=== PATIENT | female | born 1980 | race Caucasian/White ===

== ENCOUNTER 2017-05-15 10:05 | Inpatient (IN) | payer OTHER ==
[2017-05-15 10:41] VITALS: BMI 33.3
[2017-05-15 10:46] LABS: Amnisure Test RUPTURE DETECTED (No Rupture)
[2017-05-15 10:47] LABS: Amnisure Internal Control QC ACCEPTABLE (ACCEPTABLE)
[2017-05-15] MEDS ORDERED: Diphenoxylate HCl/Atropine Tablet PO PRN ×2 (10:49)
[2017-05-15] MEDS ORDERED: Ibuprofen 800 MG TAB PO PRN (10:49)
[2017-05-15] MEDS ORDERED: LR / Pitocin 40 units/1000 ml 1,000 ML IV PRN (10:49)
[2017-05-15] MEDS ORDERED: Acetaminophen 500 MG TAB PO PRN (10:49)
[2017-05-15] MEDS ORDERED: Ondansetron PF 4 MG/2 ML Vial IVP PRN ×3 (10:49→17:28)
[2017-05-15] MEDS ORDERED: Carboprost 250 MCG/ML AMP IM PRN (10:49)
[2017-05-15] MEDS ORDERED: HYDROcodone/Acetaminophen 5/325 mg Tablet PO PRN ×2 (10:49)
[2017-05-15] MEDS ORDERED: Lidocaine 1% (PF) 30 ML VIAL SC PRN (10:49)
[2017-05-15] MEDS ORDERED: Methylergonovine 0.2 MG/ML VIAL IM PRN (10:49)
[2017-05-15] MEDS ORDERED: Promethazine HCl 25 MG/ML VIAL IM PRN ×2 (10:49→14:30)
[2017-05-15] MEDS ORDERED: Misoprostol 200 MCG TAB PR PRN (10:49)
[2017-05-15] MEDS ORDERED: Lactated Ringer's 1,000 ML IV SCH (11:00)
[2017-05-15] MEDS ORDERED: LR 500 ML/Oxytocin 10 units 500 ML IV SCH (11:00)
[2017-05-15] MEDS: Penicillin G Potassium 5 MILL.UNITS in Sodium Chloride 0.9% 100 ML IVPB STA (11:29)
[2017-05-15 11:51] LABS: Hemoglobin 12.9 g/dL (12.0-16.0); Mean Corpuscular HGB CONC 33.9 g/dL (32.0-36.0); Mean Corpuscular Hemoglobin 32.7 pg (27.0-31.0); Mean Corpuscular Volume 96.4 fl (81.0-99.0); Mean Platelet Volume 9.5 fL (7.4-10.4); Platelet Count 152 thou/uL (130-400); RBC Distribution Width 11.9 % (11.5-14.5); Red Blood Cell (RBC) Count 3.95 mill/uL (4.20-5.40)
[2017-05-15 12:37] LABS: HBSAg Index 0.14 S/CO (0-0.99); Hep B Surf Ag Non-Reactive S/CO (NonReactive); Syphilis Antibody Nonreactive (Nonreactive); Syphilis Antibody Index 0.03 S/CO (<1.00 Non-Reactive)
[2017-05-15] MEDS ORDERED: Bupivacaine 0.5% 20 ML, Fentanyl 400 MCG in Sodium Chloride 0.9% 72 ML EPIDURAL SCH (13:45)
[2017-05-15] MEDS ORDERED: Communication Order-Pharmacy FS SCH (14:30)
[2017-05-15] MEDS ORDERED: Lactated Ringer's 500 ML IV PRN (14:30)
[2017-05-15] MEDS ORDERED: diphenhydrAMINE 50 MG/ML VIAL IVP PRN (14:30)
[2017-05-15] MEDS ORDERED: Fentanyl 4mcg/Marcaine 0.1% Cassette 100 ML EPIDURAL SCH (14:30)
[2017-05-15] MEDS ORDERED: ePHEDrine/0.9% NaCl/PF SYRINGE 50 mg/10 ml SLOW IVP PRN (14:30)
[2017-05-15] MEDS ORDERED: Eucerin (Mineral Oil/Petrolatum,White) 30 gm Jar TOP PRN (14:30)
[2017-05-15] MEDS ORDERED: Naloxone HCl 0.4 mg/ml Vial IVP PRN ×2 (14:30)
[2017-05-15] MEDS ORDERED: Acetaminophen 325 MG TAB PO PRN (14:30)
[2017-05-15] MEDS ORDERED: Penicillin G 2.5 MILL.units 2.5 MILL.UNITS in Premix Bag 1 BAG IVPB SCH (15:00)
--- NOTE | 2017-05-15 15:03 | PDOC.LDHP ---
Labor and Delivery H&P Chief complaint: loss of fluid (at 0900) HPI: 36yo at 39w0d by LMP here for ROM at 0900, clear. Some ctx, no VB. Current gestational age (weeks): 39 Due date: 05/22/17 Dating criteria: first trimester ultrasound Grav: 4 Para: 2 Current complications: none Abnormal US findings: No Current medications: pre- vitamins Previous surgical history: other (d&c, lap detorsion and cyst drainage) Allergies/Adverse Reactions: Allergies Allergy/AdvReac Type Severity Reaction Status Date / Time erythromycin base Allergy Verified 05/15/17 10:56 Social history: none - Physical Exam Vital signs reviewed and normal: yes General: NAD Heart: RRR Lungs: CTAB Abdomen: gravid Extremeties: no edema FHT: category 1 [place] contractions every: q5min - Vaginal Exam cm dilated: 10 Effacement: 100% Station: 0 - OB Labs Blood type: B RH: positive Antibody Screen: negative HIV: negative RPR: negative HEPSAg: negative 1 hour GCT: negative GBS: positive Rubella: immune - Assessment L&D Assessment: term patient in labor - Plan Plan: admit to L&D, labor augmentation if indicated, GBS antibiotic prophylaxis , informed consent obtained, anesthesia consult for pain management
--- NOTE | 2017-05-15 15:05 | PDOC.OPDEL ---
OB Operative/Delivery Note Delivery Dr/Surgeon: Maryam Assist: n/a Pre-Delivery Diagnosis: active labor Procedure/Post Delivery Dx: spontaneous vaginal delivery Weeks gestation: 39 Anesthesia: epidural - Findings A Sex: female Weight: 8 lb 1 oz - 1 min: 8 - 5 min: 9 - Additional Findings/Plan Placenta delivered: spontaneous Repaired Obstetrical Laceration: none Estimated blood loss: 200 Post delivery plan: routine recovery
[2017-05-15] MEDS ORDERED: Milk Of Magnesia 30 ML UDCUP PO PRN (17:28)
[2017-05-15] MEDS ORDERED: Benzocaine/Menthol 20-0.5% 60 ML CAN TOP PRN (17:28)
[2017-05-15] MEDS ORDERED: diphenhydrAMINE 25 MG CAP PO PRN (17:28)
[2017-05-15] MEDS ORDERED: Lanolin Ointment 7 GM TUBE TOP PRN (17:28)
[2017-05-15] MEDS ORDERED: Preparation H Ointment 28 GM TUBE PR PRN (17:28)
[2017-05-15] MEDS ORDERED: Bisacodyl 10 MG SUPP PR PRN (17:28)
[2017-05-15] MEDS ORDERED: LR / Pitocin 40 units/1000 ml 1,000 ML IV SCH (17:28)
[2017-05-15] MEDS: Ferrous Sulfate 325 MG TAB PO SCH (18:35)
[2017-05-15] MEDS: HYDROcodone/Acetaminophen 5/325 mg Tablet PO PRN ×2 (19:43→23:45)
[2017-05-15] MEDS: Docusate Calcium (SURFAK) 240 MG CAP PO SCH (19:44)
[2017-05-15] MEDS: Ibuprofen 800 MG TAB PO SCH (21:23)
[2017-05-16] MEDS: HYDROcodone/Acetaminophen 5/325 mg Tablet PO PRN ×5 (03:58→21:40)
[2017-05-16] MEDS: Ibuprofen 800 MG TAB PO SCH ×3 (05:18→21:38)
--- NOTE | 2017-05-16 08:35 | PDOC.PP ---
Post Progress Note Post Day #: 1 Subjective: doing well, breast feeding well, min lochia PO intake tolerated: yes Flatus: yes Ambulation: yes Vital Signs (12 hours) Temp Pulse Resp BP BP 05/16/17 04:00 97.9 F 64 18 102/68 05/16/17 00:00 98.2 F 69 18 112/71 Weight Weight 200 lb - Physical Examination General: NAD Respiratory: non-labored breathing Abdominal: no distention Fundus firm & at: below umb Extremities: negative homans (B) Skin: no rash Neurological: no gross focal deficits Psychiatric: A&Ox3, normal affect Result Diagrams: 05/15/17 11:20 Additional Labs: Post Labs Hep Bs Antigen Non-Reactive S/CO (NonReactive) 05/15/17 11:20 (1) Vaginal delivery Status: Acute - Assessment/Plan PPD1 doing well, likely DC tomorrow due to GBS+.
[2017-05-16] MEDS: Docusate Calcium (SURFAK) 240 MG CAP PO SCH ×2 (09:01→21:38)
[2017-05-16] MEDS: Prenatal Vitamin 1 TAB PO SCH (09:01)
[2017-05-16] MEDS: Ferrous Sulfate 325 MG TAB PO SCH ×2 (09:01→17:30)
[2017-05-16] MEDS ORDERED: Bupivacaine 0.25% 10 ML VIAL ONE (09:36)
[2017-05-17] MEDS: HYDROcodone/Acetaminophen 5/325 mg Tablet PO PRN ×3 (02:14→12:27)
[2017-05-17] MEDS: Ibuprofen 800 MG TAB PO SCH (06:41)
[2017-05-17 07:45] VITALS: BP 110/75; TEMP 98
[2017-05-17] MEDS: Docusate Calcium (SURFAK) 240 MG CAP PO SCH (08:18)
[2017-05-17] MEDS: Prenatal Vitamin 1 TAB PO SCH (08:18)
[2017-05-17] MEDS: Ferrous Sulfate 325 MG TAB PO SCH (08:19)
--- NOTE | 2017-05-17 09:05 | PDOC.PP ---
Post Progress Note Post Day #: 2 PO intake tolerated: yes Flatus: yes Ambulation: yes Vital Signs (12 hours) Temp Pulse Resp BP 05/17/17 08:00 98.0 F 72 20 05/17/17 07:44 98.0 F 72 20 110/75 05/17/17 04:00 98.1 F 79 18 05/17/17 00:00 98.1 F 79 18 Weight Weight 200 lb - Physical Examination General: NAD Cardiovascular: RRR Respiratory: non-labored breathing Abdominal: no distention, appropriately TTP Fundus firm & at: umb Skin: no rash Neurological: no gross focal deficits Psychiatric: normal affect Result Diagrams: 05/15/17 11:20 Additional Labs: Post Labs Hep Bs Antigen Non-Reactive S/CO (NonReactive) 05/15/17 11:20 (1) Term delivered Code(s): O80 - ENCOUNTER FOR FULL-TERM UNCOMPLICATED DELIVERY Status: Acute - Assessment/Plan VSSAF Doing well, no issues Rh pos RImm DC home fu 6wk
== END 2017-05-17 13:35 | disposition home or self-care (01) | DRG 775 ==
LOC: L&D/OP 10:05 → L&D 10:58 → 3SW 17:22
PROVIDERS: ADMIT Student in an Organized Health Care Education/Training Program; ATTEND Student in an Organized Health Care Education/Training Program
PROC: 10E0XZZ Delivery of Products of Conception, External Approach (ICD-10-PCS; principal; 2017-05-15)
DX: O99.824 Streptococcus B carrier state complicating childbirth (principal); Z37.0 Single live birth; Z3A.39 39 weeks gestation of pregnancy; Z88.1 Allergy status to other antibiotic agents
CPT/HCPCS: 51702; 84112; 85027; 86780; 87340; 99285; J2001; J2405; J2540; J3010; J3490; J7050; S0020

== ENCOUNTER 2018-12-01 14:59 | Emergency (ER) | payer OTHER ==
[2018-12-01 16:00] LABS: #Basophils 0.1 thou/uL (0.0-0.2); #Eosinphils 0.1 thou/uL (0.0-0.7); #Lymphocytes 1.5 thou/uL (1.20-3.40); #Monocytes 0.5 thou/uL (0.11-0.59); #Neutrophils 7.1 thou/uL (1.40-6.50); %Basophils 0.6 % (0.0-1.0); %Eosinophils 1.6 % (0.0-10.0); %Lymphocytes 16.1 % (21.0-51.0); %Monocytes 5.1 % (0.0-10.0); %Neutrophils 76.6 % (42.0-75.0); Hemoglobin 14.8 g/dL (12.0-16.0); Mean Corpuscular HGB CONC 35.1 g/dL (32.0-36.0); Mean Corpuscular Hemoglobin 32.3 pg (27.0-31.0); Mean Corpuscular Volume 91.8 fL (78.0-98.0); Platelet Count 191 thou/uL (130-400); RBC Distribution Width 11.5 % (11.5-14.5); Red Blood Cell (RBC) Count 4.58 mill/uL (4.20-5.40); White Blood Cell (WBC) Count 9.3 thou/uL (4.8-10.8)
[2018-12-01] MEDS ORDERED: HYDROcodone/Acetaminophen 5/325 mg Tablet ONE (17:13)
[2018-12-01] MEDS ORDERED: Ondansetron PF 4 MG/2 ML Vial ONE (17:14)
[2018-12-01 17:39] LABS: Hemoglobin 12.9 g/dL (12.0-16.0)
[2018-12-01] MEDS ORDERED: Misoprostol 200 MCG TAB PR SCH (17:45)
--- NOTE | 2018-12-01 20:34 | CON ---
DATE OF CONSULTATION: 12/01/2018 CONSULTING PROVIDER: Dr. Prieto and Alysha Low NP. HISTORY OF PRESENT ILLNESS: This is a 38-year-old G5, P3-0-1-3, who presented to the emergency department with significant cramping and vaginal bleeding. The patient reports that her cramping started yesterday and continued despite comfort measures. When she arrived to the emergency department, she reported that her water broke and proceeded to pass a 14-week fetus. She was stable with minimal bleeding, but then proceeded to soak her pad an hour and was still having some significant pain and dizziness. Upon my arrival, she appeared to be quite uncomfortable and clammy. She reported continued lower abdominal cramping and discomfort as well as continued moderate bleeding. REVIEW OF SYSTEMS: Negative for head, eyes, ears, nose, throat, cardiovascular, respiratory, GI, , neuropsych, musculoskeletal, skin, or constitutional symptoms other than mentioned above. PAST MEDICAL HISTORY: None. PAST SURGICAL HISTORY: 1. D and C. 2. Laparoscopic detorsion and cyst drainage. 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 ALLERGIES: ERYTHROMYCIN. MEDICATIONS: vitamin. SOCIAL HISTORY: Negative for tobacco, alcohol, or drug abuse. PHYSICAL EXAMINATION: GENERAL: Afebrile, blood pressure 100s/60s, and pulse in the 80s. CHEST: Nonlabored. ABDOMEN: Soft. Minimally tender to palpation. PELVIC: Speculum was placed in the vagina and a large amount of clot approximately 300 mL was removed, and the placenta was found to be at the external cervical os and easily teased out with ring forceps. Once all of this was removed, further inspection showed minimal bleeding. LABORATORY DATA: Hemoglobin 14.8, hematocrit 42.0. Repeat 12.9 and 36.9 respectively. White count 9.3. ASSESSMENT AND PLAN: A 38-year-old status post complete of 14-week fetus, now status post gentle removal of the placenta in the emergency department with ring forceps. Her bleeding now appears stable, and her vital signs are also stable. The patient reports that she feels much better. I recommend continuing to watch her bleeding for at least another hour, and if she is deemed stable to go home, may be discharged to home to follow up with Dr. Francisco next week. All questions were answered. The placenta was sent to Pathology. Job ID: [id number] MTDD
== END 2018-12-01 20:00 | disposition home or self-care (01) ==
LOC: ERS 14:59
DX: O03.9 Complete or unspecified spontaneous abortion without complication (principal)
CPT/HCPCS: 36415; 84702; 85025; 86850; 86900; 86901; 88305; 96360; J2405

== ENCOUNTER 2020-07-01 04:51 | Emergency (ER) | payer OTHER ==
[2020-07-01] MEDS ORDERED: Magnesium 2 GM/50 ML BAG (IN WATER) ONE (05:08)
[2020-07-01] MEDS ORDERED: hydrALAZINE 20 MG/ML VIAL ONE (05:08)
[2020-07-01 05:32] LABS: #Eosinphils 0.1 thou/uL (0.0-0.7); #Lymphocytes 1.9 thou/uL (1.20-3.40); #Monocytes 0.4 thou/uL (0.11-0.59); #Neutrophils 2.1 thou/uL (1.40-6.50); %Basophils 0.9 % (0.0-1.0); %Eosinophils 3.1 % (0.0-10.0); %Lymphocytes 41.9 % (21.0-51.0); %Monocytes 9.4 % (0.0-10.0); %Neutrophils 44.7 % (42.0-75.0); Hemoglobin 11.9 g/dL (12.0-16.0); Mean Corpuscular HGB CONC 33.1 g/dL (32.0-36.0); Mean Corpuscular Hemoglobin 29.9 pg (27.0-31.0); Mean Corpuscular Volume 90.3 fL (78.0-98.0); Mean Platelet Volume 9.2 fL (7.4-10.4); Platelet Count 195 thou/uL (130-400); RBC Distribution Width 12.4 % (11.5-14.5); White Blood Cell (WBC) Count 4.6 thou/uL (4.8-10.8)
[2020-07-01 05:38] LABS: ALT (SGPT) 24 U/L (8-55); AST (SGOT) 27 U/L (5-34); Albumin 3.4 g/dL (3.5-5.0); Alkaline Phosphatase 91 U/L (40-110); Anion Gap 12 mmol/L (10-20); BUN (Urea Nitrogen) 12 mg/dL (7.0-18.7); Bilirubin, Total 0.2 mg/dL (0.2-1.2); Calc. Creatinine Clearance 0 mL/min (70-130); Calcium 8.6 mg/dL (7.8-10.44); Carbon Dioxide 23 mmol/L (22-29); Chloride 106 mmol/L (98-107); Glucose 87 mg/dL (70-105); Magnesium 2.1 mg/dL (1.6-2.6); Potassium 3.8 mmol/L (3.5-5.1); Protein, Total 6.4 g/dL (6.0-8.3); Sodium 137 mmol/L (136-145)
[2020-07-01 07:27] LABS: Bilirubin Negative (Negative); Blood, Urine Negative (Negative); Glucose, Urine (Dipstick) Negative (Negative); Ketone, Urine Negative (Negative); Leukocyte Negative (Negative); Nitrite Negative (Negative); Protein, Urine (Dipstick) Negative (Neg-Trace); Urobilinogen 0.2 mg/dL (Less than 2)
[2020-07-01 07:35] LABS: Clarity Clear (Clear)
[2020-07-01 07:36] LABS: RBC/HPF 0-3 HPF (0-3)
[2020-07-01 07:37] LABS: Bacteria/HPF None Seen HPF (None Seen); Squamous Epithelial 0-3 HPF (0-3); WBC/HPF None Seen HPF (0-3)
== END 2020-07-01 06:06 | disposition short-term general hospital (02) ==
LOC: ERS 04:51
DX: O14.95 Unspecified pre-eclampsia, complicating the puerperium (principal)
CPT/HCPCS: 80053; 81003; 83735; 84156; 85025; 96365; 96375; J0360; J3475